=== PATIENT | female | born 1935 | race Caucasian/White ===

== ENCOUNTER 2019-12-27 07:12 | Emergency (ER) | payer OTHER ==
[~2019-12-27] VITALS: Ht 149.9 cm; Wt 48.5 kg
[2019-12-27 07:36] VITALS: Ht 149.9 cm; Wt 48.5 kg
[2019-12-27 09:09] VITALS: BP 148/70
== END 2019-12-27 09:10 | disposition home or self-care (01) ==
LOC: ED 07:12
DX: S40.012A Contusion of left shoulder, initial encounter (principal); I10 Essential (primary) hypertension; Z98.890 Other specified postprocedural states; Z88.8 Allergy status to other drugs, medicaments and biological substances; W17.89XA Other fall from one level to another, initial encounter; Y93.89 Activity, other specified; Y92.89 Other specified places as the place of occurrence of the external cause; Y99.8 Other external cause status
CPT/HCPCS: Q0092